=== PATIENT | female | born 1970 | race Caucasian/White ===

== ENCOUNTER 2018-02-20 05:56 | Inpatient (IN) | payer OTHER ==
[2018-02-20] MEDS ORDERED: LACTATED RINGER'S 1,000 ML IV* (06:30)
[2018-02-20] MEDS ORDERED: CEFAZOLIN 2 GM/50 ML (PMX) 50 ML IVPB (06:30)
[2018-02-20] MEDS ORDERED: PROPOFOL 20 ML (06:45)
[2018-02-20] MEDS ORDERED: ACETAMINOPHEN 1000MG/100ML IV 100 ML (06:45)
[2018-02-20] MEDS ORDERED: LIDOCAINE 100 MG SYRINGE (06:49)
[2018-02-20] MEDS ORDERED: ROCURONIUM 50 MG INJ (06:50)
[2018-02-20] MEDS ORDERED: DEXAMETHASONE 4 MG/ML 1 ML INJ (06:50)
[2018-02-20] MEDS ORDERED: ONDANSETRON 4 MG INJ (06:50)
[2018-02-20] MEDS ORDERED: FENTAnyl 50 MCG/ML VIAL ×2 (06:50→08:12)
[2018-02-20] MEDS ORDERED: CEFAZOLIN 1 GM INJ ×3 (06:51→07:43)
[2018-02-20] MEDS ORDERED: SUGAMMADEX SODIUM 200 MG/2 ML VIAL IV (06:59)
[2018-02-20] MEDS ORDERED: HYDROmorphONE 2 MG/ML SYG (07:00)
[2018-02-20] MEDS ORDERED: MIDAZOLAM 1 MG/ML 2 ML INJ (07:21)
[2018-02-20] MEDS ORDERED: ONDANSETRON 4 MG INJ IV (08:00)
[2018-02-20] MEDS ORDERED: HYDROmorphONE (0.2 MG/ML) 10ML SYG IV (08:00)
[2018-02-20] MEDS ORDERED: VASOPRESSIN 20 UNITS INJ (08:20)
[2018-02-20] MEDS ORDERED: SODIUM CL BACTERIOSTATIC 30 ML INJ (08:21)
[2018-02-20] MEDS: VASOPRESSIN 20 UNITS INJ IM (08:24)
[2018-02-20] MEDS ORDERED: KETOROLAC 30 MG INJ (09:07)
[2018-02-20] MEDS: HYDROmorphONE (0.2 MG/ML) 10ML SYG IV (09:52)
[2018-02-20] MEDS: KETOROLAC 30 MG INJ IV (09:53)
[2018-02-20] MEDS ORDERED: ACETAMINOPHEN 325 MG TAB PO (10:00)
[2018-02-20] MEDS ORDERED: DIPHENHYDRAMINE 50 MG INJ IV (10:00)
[2018-02-20] MEDS ORDERED: HYDROmorphONE 0.5 MG/0.5 ML SYG IV ×2 (10:00)
[2018-02-20] MEDS ORDERED: NALOXONE (0.4 MG/ML) INJ IV (10:00)
[2018-02-20] MEDS ORDERED: HYDROCODONE/APAP (5/325) TAB PO ×2 (10:00)
[2018-02-20] MEDS: HYDROmorphONE 0.2 MG/ML PCA IV (10:21)
[2018-02-20] MEDS: FENTAnyl 50 MCG/ML VIAL IV (11:31)
[2018-02-20] MEDS: LACTATED RINGER'S 1,000 ML IV ×2 (12:29→23:16)
[2018-02-20] MEDS: ONDANSETRON 4 MG INJ IV (12:30)
[2018-02-20] MEDS: NAPROXEN 250 MG TAB PO (21:00)
[2018-02-21 06:30] LABS: ADD MAN DIFF? NO
[2018-02-21 06:37] LABS: WHITE BLOOD COUNT 14.3 10^3/ul (4.8-10.8)
[2018-02-21 06:37] LABS: BASOPHILS % 0.1 % (0.0-2.0); EOSINOPHILS % 0.1 % (0.0-7.0); HEMOGLOBIN 12.1 g/dl (12.0-16.0); LYMPHOCYTES # 3.3 10^3/ul (0.8-2.9); MEAN CORPUSCULAR HEMOGLOBIN 30.6 pg (29.0-33.0); MEAN CORPUSCULAR HGB CONC 33.6 g/dl (32.0-37.0); MEAN CORPUSCULAR VOLUME 90.9 fl (82.0-101.0); MEAN PLATELET VOLUME 10.4 fl (7.4-10.4); MONOCYTE # 0.9 10^3/ul (0.3-0.9); NEUTROPHIL # 10.1 10^3/ul (1.6-7.5); NEUTROPHILS % 70.3 % (39.0-77.0); PLATELET COUNT 350 10^3/UL (140-415); RED BLOOD COUNT 3.96 10^6/ul (4.20-5.40); RED CELL DISTRIBUTION WIDTH 13.1 % (11.5-14.5)
[2018-02-21] MEDS: NAPROXEN 250 MG TAB PO ×2 (08:37→20:57)
[2018-02-21] MEDS: LACTATED RINGER'S 1,000 ML IV ×3 (08:43→19:38)
[2018-02-21 13:26] LABS: ADD UMIC NO; UR ASCORBIC ACID NEGATIVE (NEGATIVE); UR BILIRUBIN (Dip) NEGATIVE (NEGATIVE); UR BLOOD (Dip) NEGATIVE (NEGATIVE); UR CLARITY CLEAR (CLEAR); UR COLOR STRAW (YELLOW); UR GLUCOSE (Dip) NEGATIVE (NEGATIVE); UR KETONES (Dip) NEGATIVE (NEGATIVE); UR LEUKOCYTE ESTERASE (Dip) NEGATIVE Leu/ul (NEGATIVE); UR NITRITE (Dip) NEGATIVE (NEGATIVE); UR SPECIFIC GRAVITY (Dip) 1.004 (1.003-1.030); UR TOTAL PROTEIN (Dip) NEGATIVE (NEGATIVE); UR UROBILINOGEN (Dip) NEGATIVE (NEGATIVE)
[2018-02-21] MEDS: ZOLPIDEM 5 MG TAB PO (20:57)
[2018-02-21] MEDS: FAMOTIDINE 20 MG INJ IV (20:58)
[2018-02-21] MEDS: ONDANSETRON 4 MG INJ IV (20:58)
[2018-02-22] MEDS: LACTATED RINGER'S 1,000 ML IV ×2 (05:13→17:10)
[2018-02-22] MEDS: LEVOTHYROXINE 50 MCG TAB PO (05:13)
[2018-02-22] MEDS: HYDROmorphONE 0.2 MG/ML PCA IV (08:04)
[2018-02-22] MEDS: FAMOTIDINE 20 MG INJ IV ×2 (08:39→20:38)
[2018-02-22] MEDS: NAPROXEN 250 MG TAB PO ×2 (08:39→20:38)
[2018-02-22] MEDS: ONDANSETRON 4 MG INJ IV (13:13)
[2018-02-22] MEDS: IBUPROFEN 600 MG TAB PO ×2 (17:09)
[2018-02-22] MEDS: ZOLPIDEM 5 MG TAB PO (22:14)
[2018-02-23] MEDS: LEVOTHYROXINE 50 MCG TAB PO (05:11)
[2018-02-23] MEDS: LACTATED RINGER'S 1,000 ML IV (05:11)
[2018-02-23] MEDS: FAMOTIDINE 20 MG INJ IV (09:09)
[2018-02-23] MEDS: NAPROXEN 250 MG TAB PO (09:10)
[2018-02-23] MEDS: IBUPROFEN 600 MG TAB PO (11:45)
[2018-02-23] MEDS: ONDANSETRON 4 MG INJ IV (15:55)
== END 2018-02-23 18:25 | disposition home or self-care (01) | DRG 743 ==
LOC: REC 05:56 → MS2 12:05
PROVIDERS: Obstetrics & Gynecology
PROC: 0UB90ZZ Excision of Uterus, Open Approach (ICD-10-PCS; principal; 2018-02-20 07:30)
PROC: 0UB00ZZ Excision of Right Ovary, Open Approach (ICD-10-PCS; 2018-02-20 07:30)
DX: D25.1 Intramural leiomyoma of uterus (principal); N83.201 Unspecified ovarian cyst, right side; E03.9 Hypothyroidism, unspecified; I10 Essential (primary) hypertension; Z80.0 Family history of malignant neoplasm of digestive organs
CPT/HCPCS: 81003; 85025; 86850; 86900; 86901; 86920; 87086; 88104; 88305